=== PATIENT | female | born 1965 | race Two or more races ===

== ENCOUNTER 2023-04-03 20:24 | Inpatient (IN) | payer OTHER ==
[2023-04-03 22:20] VITALS: BMI 22.1
[2023-04-04] MEDS ORDERED: ACETAMINOPHEN 325 MG TABLET (FP) PO PRN (00:02)
[2023-04-04] MEDS ORDERED: BENZOCAINE/MENTHOL (CHLORASEPTIC ) LOZENGE MM PRN (00:02)
[2023-04-04] MEDS ORDERED: MAG HYDROX/AL HYDROX/SIMETH 30 ML UNIT-DOSE CUP PO PRN (00:02)
[2023-04-04] MEDS ORDERED: COLLOIDAL OATMEAL 1 BAR EACH TP PRN (00:02)
[2023-04-04] MEDS ORDERED: MAGNESIUM HYDROX 2400MG/30ML ORAL SUSPENSION 30 ML CUP PO PRN (00:02)
[2023-04-04] MEDS ORDERED: guaiFENesin 600 MG TABLET.ER (FP) PO PRN (00:02)
[2023-04-04] MEDS ORDERED: NALOXONE HCL (KLOXXADO) 8 MG SPRAY NS PRN (00:02)
[2023-04-04] MEDS ORDERED: LOPERAMIDE HCL 2 MG CAPSULE PO PRN (00:02)
[2023-04-04] MEDS ORDERED: POLYETHYLENE GLYCOL (HEALTHYLAX) 3350 17 GM PACKET PO PRN (00:02)
[2023-04-04] MEDS ORDERED: BENZONATATE 200 MG CAPSULE PO PRN (00:02)
[2023-04-04] MEDS ORDERED: NALOXONE HCL 0.4 MG/ML VIAL IM PRN (00:02)
[2023-04-04] MEDS ORDERED: NICOTINE POLACRILEX 2 MG GUM BUC PRN (00:02)
[2023-04-04] MEDS ORDERED: TUBERCULIN PPD 5 TU/0.1ML SYRINGE (IN PATIENT USE ONLY) ID ONE (04:03)
[2023-04-04] MEDS ORDERED: TUBERCULIN PPD 5 TU/0.1ML VIAL ID ONE ×2 (04:23→06:44)
[2023-04-04 11:53] LABS: EPI CELLS 24 /uL (0-25.1); HYALINE CASTS 1 /uL (0-3.1); PH,URINE 5.5 (5.0-8.0); URINE APPEARANCE CLEAR; URINE BACTERIA 181 /uL (0-1359); URINE BILIRUBIN NEGATIVE (NEGATIVE); URINE COLOR YELLOW; URINE GLUCOSE (UA) NEGATIVE (NEGATIVE); URINE KETONE NEGATIVE (NEGATIVE); URINE LEUK ESTERASE 2+ (NEGATIVE); URINE NITRITE NEGATIVE (NEGATIVE); URINE PROTEIN TRACE (NEGATIVE); URINE RBC 3 /uL (0-23.9); URINE WBC 51 /uL (0-25.8)
[2023-04-04] MEDS ORDERED: VALBENAZINE TOSYLATE 80 MG PO SCH (12:00)
[2023-04-04] MEDS: BICTEGRAV/EMTRICIT/TENOFOV (BIKTARVY) 50-200-25 MG TABLET PO SCH (13:17)
[2023-04-04] MEDS: PREGABALIN 50 MG CAPSULE PO SCH ×2 (13:17→21:37)
[2023-04-04] MEDS: PRENATAL VITAMINS W/ FOLIC ACID TABLET (FP) PO SCH (13:23)
[2023-04-04] MEDS: NICOTINE 14 MG/24 HOURS TOPICAL PATCH TD SCH (13:37)
[2023-04-04] MEDS: ATORVASTATIN CA 10 MG TABLET (FP) PO SCH (21:36)
[2023-04-04] MEDS: DOCUSATE SODIUM 100 MG CAPSULE (FP) PO SCH (21:36)
[2023-04-04] MEDS: QUEtiapine FUMARATE 300 MG TABLET PO SCH (21:37)
[2023-04-04] MEDS: MELATONIN 5 MG TABLETS PO SCH (21:37)
[2023-04-04] MEDS: THIAMINE HCL 100 MG TABLET (FP) PO SCH (21:38)
[2023-04-04] MEDS ORDERED: SENNOSIDES 8.6MG TABLET (FP) PO SCH (22:00)
[2023-04-05] MEDS: SENNOSIDES 8.6MG TABLET (FP) PO SCH ×2 (00:08→21:38)
[2023-04-05] MEDS: amLODIPine BESYLATE 10 MG TABLET (FP) PO SCH (06:30)
[2023-04-05] MEDS: BICTEGRAV/EMTRICIT/TENOFOV (BIKTARVY) 50-200-25 MG TABLET PO SCH (07:02)
[2023-04-05] MEDS: NICOTINE 14 MG/24 HOURS TOPICAL PATCH TD SCH (09:58)
[2023-04-05] MEDS: PREGABALIN 50 MG CAPSULE PO SCH ×2 (09:59→21:37)
[2023-04-05] MEDS: PRENATAL VITAMINS W/ FOLIC ACID TABLET (FP) PO SCH (09:59)
[2023-04-05 10:11] LABS: POTASSIUM 3.4 mmol/L (3.5-5.1)
[2023-04-05 10:17] LABS: ALBUMIN 3.1 g/dl (3.4-5.0); BLOOD UREA NITROGEN 18.1 mg/dL (7-18)
[2023-04-05 10:20] LABS: CREATININE 0.8 mg/dL (0.55-1.3)
[2023-04-05 10:22] LABS: BILIRUBIN,TOTAL 0.4 mg/dL (0.2-1); TOT PROT 6.8 g/dl (6.4-8.2)
[2023-04-05 10:36] LABS: HEMATOCRIT 34.2 % (32.4-45.2); HEMOGLOBIN 11.4 GM/dL (10.7-15.3); MCH 28.2 pg (25.7-33.7); MCHC 33.5 g/dl (32.0-36.0); MEAN CELL VOLUME 84.3 fl (80-96); PLATELET COUNT 414 10^3/uL (134-434); RBC 4.05 M/mm3 (3.60-5.2); RDW 15.9 % (11.6-15.6); WHITE BLOOD COUNT 4.4 K/mm3 (4.0-10.0)
[2023-04-05 11:35] LABS: SYPHILIS W/ RPR CONF NON-REACTIVE (NONREACTIVE)
[2023-04-05] MEDS: ATORVASTATIN CA 10 MG TABLET (FP) PO SCH (21:37)
[2023-04-05] MEDS: DOCUSATE SODIUM 100 MG CAPSULE (FP) PO SCH (21:37)
[2023-04-05] MEDS: THIAMINE HCL 100 MG TABLET (FP) PO SCH (21:38)
[2023-04-05] MEDS: MELATONIN 5 MG TABLETS PO SCH (21:38)
[2023-04-05] MEDS: QUEtiapine FUMARATE 300 MG TABLET PO SCH (21:38)
[2023-04-06] MEDS: BICTEGRAV/EMTRICIT/TENOFOV (BIKTARVY) 50-200-25 MG TABLET PO SCH (06:22)
[2023-04-06] MEDS: amLODIPine BESYLATE 10 MG TABLET (FP) PO SCH (06:22)
[2023-04-06] MEDS: PRENATAL VITAMINS W/ FOLIC ACID TABLET (FP) PO SCH (09:43)
[2023-04-06] MEDS: NICOTINE 14 MG/24 HOURS TOPICAL PATCH TD SCH (09:43)
[2023-04-06] MEDS: PREGABALIN 50 MG CAPSULE PO SCH ×2 (09:43→21:46)
[2023-04-06] MEDS: DOCUSATE SODIUM 100 MG CAPSULE (FP) PO SCH (21:46)
[2023-04-06] MEDS: MELATONIN 5 MG TABLETS PO SCH (21:46)
[2023-04-06] MEDS: QUEtiapine FUMARATE 300 MG TABLET PO SCH (21:46)
[2023-04-06] MEDS: SENNOSIDES 8.6MG TABLET (FP) PO SCH (21:46)
[2023-04-06] MEDS: THIAMINE HCL 100 MG TABLET (FP) PO SCH (21:46)
[2023-04-06] MEDS: ATORVASTATIN CA 10 MG TABLET (FP) PO SCH (21:48)
[2023-04-07] MEDS: BICTEGRAV/EMTRICIT/TENOFOV (BIKTARVY) 50-200-25 MG TABLET PO SCH (06:14)
[2023-04-07] MEDS: amLODIPine BESYLATE 10 MG TABLET (FP) PO SCH (06:14)
[2023-04-07] MEDS: PRENATAL VITAMINS W/ FOLIC ACID TABLET (FP) PO SCH (09:40)
[2023-04-07] MEDS: NICOTINE 14 MG/24 HOURS TOPICAL PATCH TD SCH (09:41)
[2023-04-07] MEDS: PREGABALIN 50 MG CAPSULE PO SCH ×2 (09:41→21:57)
[2023-04-07] MEDS: MELATONIN 5 MG TABLETS PO SCH (21:56)
[2023-04-07] MEDS: SENNOSIDES 8.6MG TABLET (FP) PO SCH (21:57)
[2023-04-07] MEDS: DOCUSATE SODIUM 100 MG CAPSULE (FP) PO SCH (21:57)
[2023-04-07] MEDS: THIAMINE HCL 100 MG TABLET (FP) PO SCH (21:57)
[2023-04-07] MEDS: QUEtiapine FUMARATE 300 MG TABLET PO SCH (21:57)
[2023-04-07] MEDS: ATORVASTATIN CA 10 MG TABLET (FP) PO SCH (21:57)
[2023-04-08] MEDS: BICTEGRAV/EMTRICIT/TENOFOV (BIKTARVY) 50-200-25 MG TABLET PO SCH (06:29)
[2023-04-08] MEDS: amLODIPine BESYLATE 10 MG TABLET (FP) PO SCH (06:29)
[2023-04-08] MEDS: NICOTINE 14 MG/24 HOURS TOPICAL PATCH TD SCH (09:50)
[2023-04-08] MEDS: PREGABALIN 50 MG CAPSULE PO SCH ×2 (09:50→22:04)
[2023-04-08] MEDS: PRENATAL VITAMINS W/ FOLIC ACID TABLET (FP) PO SCH (09:51)
[2023-04-08] MEDS: DOCUSATE SODIUM 100 MG CAPSULE (FP) PO SCH (21:41)
[2023-04-08] MEDS: MELATONIN 5 MG TABLETS PO SCH (21:41)
[2023-04-08] MEDS: ATORVASTATIN CA 10 MG TABLET (FP) PO SCH (21:41)
[2023-04-08] MEDS: SENNOSIDES 8.6MG TABLET (FP) PO SCH (21:42)
[2023-04-08] MEDS: QUEtiapine FUMARATE 300 MG TABLET PO SCH (21:42)
[2023-04-08] MEDS: THIAMINE HCL 100 MG TABLET (FP) PO SCH (21:42)
[2023-04-09] MEDS: BICTEGRAV/EMTRICIT/TENOFOV (BIKTARVY) 50-200-25 MG TABLET PO SCH (06:43)
[2023-04-09] MEDS: amLODIPine BESYLATE 10 MG TABLET (FP) PO SCH (06:43)
[2023-04-09] MEDS: PREGABALIN 50 MG CAPSULE PO SCH ×2 (09:53→21:37)
[2023-04-09] MEDS: PRENATAL VITAMINS W/ FOLIC ACID TABLET (FP) PO SCH (09:54)
[2023-04-09] MEDS: NICOTINE 14 MG/24 HOURS TOPICAL PATCH TD SCH (09:54)
[2023-04-09] MEDS: QUEtiapine FUMARATE 300 MG TABLET PO SCH (21:37)
[2023-04-09] MEDS: SENNOSIDES 8.6MG TABLET (FP) PO SCH (21:37)
[2023-04-09] MEDS: DOCUSATE SODIUM 100 MG CAPSULE (FP) PO SCH (21:37)
[2023-04-09] MEDS: THIAMINE HCL 100 MG TABLET (FP) PO SCH (21:37)
[2023-04-09] MEDS: ATORVASTATIN CA 10 MG TABLET (FP) PO SCH (21:37)
[2023-04-09] MEDS: MELATONIN 5 MG TABLETS PO SCH (21:37)
[2023-04-10] MEDS: BICTEGRAV/EMTRICIT/TENOFOV (BIKTARVY) 50-200-25 MG TABLET PO SCH (06:14)
[2023-04-10] MEDS: amLODIPine BESYLATE 10 MG TABLET (FP) PO SCH (06:14)
[2023-04-10] MEDS: NICOTINE 14 MG/24 HOURS TOPICAL PATCH TD SCH (10:03)
[2023-04-10] MEDS: PREGABALIN 50 MG CAPSULE PO SCH ×2 (10:03→21:44)
[2023-04-10] MEDS: PRENATAL VITAMINS W/ FOLIC ACID TABLET (FP) PO SCH (10:03)
[2023-04-10] MEDS: THIAMINE HCL 100 MG TABLET (FP) PO SCH (21:44)
[2023-04-10] MEDS: MELATONIN 5 MG TABLETS PO SCH (21:44)
[2023-04-10] MEDS: ATORVASTATIN CA 10 MG TABLET (FP) PO SCH (21:44)
[2023-04-10] MEDS: DOCUSATE SODIUM 100 MG CAPSULE (FP) PO SCH (21:44)
[2023-04-10] MEDS: QUEtiapine FUMARATE 300 MG TABLET PO SCH (21:44)
[2023-04-10] MEDS: SENNOSIDES 8.6MG TABLET (FP) PO SCH (21:44)
[2023-04-11] MEDS: BICTEGRAV/EMTRICIT/TENOFOV (BIKTARVY) 50-200-25 MG TABLET PO SCH (07:04)
[2023-04-11] MEDS: amLODIPine BESYLATE 10 MG TABLET (FP) PO SCH (07:04)
[2023-04-11] MEDS: PRENATAL VITAMINS W/ FOLIC ACID TABLET (FP) PO SCH (09:44)
[2023-04-11] MEDS: PREGABALIN 50 MG CAPSULE PO SCH ×2 (09:44→21:35)
[2023-04-11] MEDS: NICOTINE 14 MG/24 HOURS TOPICAL PATCH TD SCH (09:44)
[2023-04-11] MEDS: QUEtiapine FUMARATE 300 MG TABLET PO SCH (21:35)
[2023-04-11] MEDS: MELATONIN 5 MG TABLETS PO SCH (21:35)
[2023-04-11] MEDS: THIAMINE HCL 100 MG TABLET (FP) PO SCH (21:35)
[2023-04-11] MEDS: DOCUSATE SODIUM 100 MG CAPSULE (FP) PO SCH (21:35)
[2023-04-11] MEDS: ATORVASTATIN CA 10 MG TABLET (FP) PO SCH (21:35)
[2023-04-11] MEDS: SENNOSIDES 8.6MG TABLET (FP) PO SCH (21:35)
[2023-04-12] MEDS: amLODIPine BESYLATE 10 MG TABLET (FP) PO SCH (06:35)
[2023-04-12] MEDS: BICTEGRAV/EMTRICIT/TENOFOV (BIKTARVY) 50-200-25 MG TABLET PO SCH (06:35)
[2023-04-12] MEDS: PRENATAL VITAMINS W/ FOLIC ACID TABLET (FP) PO SCH (10:25)
[2023-04-12] MEDS: NICOTINE 14 MG/24 HOURS TOPICAL PATCH TD SCH (10:25)
[2023-04-12] MEDS: PREGABALIN 50 MG CAPSULE PO SCH ×2 (10:25→21:43)
[2023-04-12] MEDS: IBUPROFEN 400 MG TABLET (FP) PO PRN (10:25)
[2023-04-12] MEDS: QUEtiapine FUMARATE 300 MG TABLET PO SCH (21:42)
[2023-04-12] MEDS: THIAMINE HCL 100 MG TABLET (FP) PO SCH (21:43)
[2023-04-12] MEDS: DOCUSATE SODIUM 100 MG CAPSULE (FP) PO SCH (21:43)
[2023-04-12] MEDS: SENNOSIDES 8.6MG TABLET (FP) PO SCH (21:43)
[2023-04-12] MEDS: ATORVASTATIN CA 10 MG TABLET (FP) PO SCH (21:43)
[2023-04-12] MEDS: MELATONIN 5 MG TABLETS PO SCH (21:43)
[2023-04-12] MEDS: IBUPROFEN 600 MG TABLET (FP) PO PRN (21:44)
[2023-04-13] MEDS: BICTEGRAV/EMTRICIT/TENOFOV (BIKTARVY) 50-200-25 MG TABLET PO SCH (06:30)
[2023-04-13] MEDS: amLODIPine BESYLATE 10 MG TABLET (FP) PO SCH (07:31)
[2023-04-13] MEDS: PRENATAL VITAMINS W/ FOLIC ACID TABLET (FP) PO SCH (09:54)
[2023-04-13] MEDS: IBUPROFEN 400 MG TABLET (FP) PO PRN (09:54)
[2023-04-13] MEDS: PREGABALIN 50 MG CAPSULE PO SCH ×2 (09:54→21:30)
[2023-04-13] MEDS: NICOTINE 14 MG/24 HOURS TOPICAL PATCH TD SCH (09:56)
[2023-04-13] MEDS: ATORVASTATIN CA 10 MG TABLET (FP) PO SCH (21:30)
[2023-04-13] MEDS: SENNOSIDES 8.6MG TABLET (FP) PO SCH (21:30)
[2023-04-13] MEDS: DOCUSATE SODIUM 100 MG CAPSULE (FP) PO SCH (21:30)
[2023-04-13] MEDS: THIAMINE HCL 100 MG TABLET (FP) PO SCH (21:30)
[2023-04-13] MEDS: QUEtiapine FUMARATE 300 MG TABLET PO SCH (21:30)
[2023-04-13] MEDS: MELATONIN 5 MG TABLETS PO SCH (21:30)
[2023-04-14] MEDS: BICTEGRAV/EMTRICIT/TENOFOV (BIKTARVY) 50-200-25 MG TABLET PO SCH (06:15)
[2023-04-14] MEDS: amLODIPine BESYLATE 10 MG TABLET (FP) PO SCH (06:15)
[2023-04-14] MEDS: PRENATAL VITAMINS W/ FOLIC ACID TABLET (FP) PO SCH (09:55)
[2023-04-14] MEDS: PREGABALIN 50 MG CAPSULE PO SCH ×2 (09:55→21:59)
[2023-04-14] MEDS: NICOTINE 14 MG/24 HOURS TOPICAL PATCH TD SCH (09:56)
[2023-04-14] MEDS: IBUPROFEN 400 MG TABLET (FP) PO PRN (09:57)
[2023-04-14] MEDS: QUEtiapine FUMARATE 300 MG TABLET PO SCH (21:58)
[2023-04-14] MEDS: THIAMINE HCL 100 MG TABLET (FP) PO SCH (21:58)
[2023-04-14] MEDS: DOCUSATE SODIUM 100 MG CAPSULE (FP) PO SCH (21:59)
[2023-04-14] MEDS: IBUPROFEN 600 MG TABLET (FP) PO PRN (21:59)
[2023-04-14] MEDS: ATORVASTATIN CA 10 MG TABLET (FP) PO SCH (21:59)
[2023-04-14] MEDS: MELATONIN 5 MG TABLETS PO SCH (21:59)
[2023-04-14] MEDS: SENNOSIDES 8.6MG TABLET (FP) PO SCH (21:59)
[2023-04-15] MEDS: amLODIPine BESYLATE 10 MG TABLET (FP) PO SCH (06:32)
[2023-04-15] MEDS: BICTEGRAV/EMTRICIT/TENOFOV (BIKTARVY) 50-200-25 MG TABLET PO SCH (06:32)
[2023-04-15] MEDS: PRENATAL VITAMINS W/ FOLIC ACID TABLET (FP) PO SCH (09:53)
[2023-04-15] MEDS: PREGABALIN 50 MG CAPSULE PO SCH ×2 (09:53→21:56)
[2023-04-15] MEDS: NICOTINE 14 MG/24 HOURS TOPICAL PATCH TD SCH (09:53)
[2023-04-15] MEDS: SENNOSIDES 8.6MG TABLET (FP) PO SCH (21:55)
[2023-04-15] MEDS: DOCUSATE SODIUM 100 MG CAPSULE (FP) PO SCH (21:55)
[2023-04-15] MEDS: THIAMINE HCL 100 MG TABLET (FP) PO SCH (21:56)
[2023-04-15] MEDS: ATORVASTATIN CA 10 MG TABLET (FP) PO SCH (21:56)
[2023-04-15] MEDS: QUEtiapine FUMARATE 300 MG TABLET PO SCH (21:56)
[2023-04-15] MEDS: MELATONIN 5 MG TABLETS PO SCH (21:56)
[2023-04-15] MEDS: IBUPROFEN 600 MG TABLET (FP) PO PRN (21:57)
[2023-04-16] MEDS: amLODIPine BESYLATE 10 MG TABLET (FP) PO SCH (06:31)
[2023-04-16] MEDS: BICTEGRAV/EMTRICIT/TENOFOV (BIKTARVY) 50-200-25 MG TABLET PO SCH (06:31)
[2023-04-16] MEDS: IBUPROFEN 600 MG TABLET (FP) PO PRN (09:39)
[2023-04-16] MEDS: PREGABALIN 50 MG CAPSULE PO SCH ×2 (09:39→21:23)
[2023-04-16] MEDS: PRENATAL VITAMINS W/ FOLIC ACID TABLET (FP) PO SCH (09:39)
[2023-04-16] MEDS: NICOTINE 14 MG/24 HOURS TOPICAL PATCH TD SCH (09:40)
[2023-04-16] MEDS: LIDOCAINE 4% PATCH TP SCH (13:59)
[2023-04-16] MEDS: QUEtiapine FUMARATE 300 MG TABLET PO SCH (21:23)
[2023-04-16] MEDS: SENNOSIDES 8.6MG TABLET (FP) PO SCH (21:23)
[2023-04-16] MEDS: THIAMINE HCL 100 MG TABLET (FP) PO SCH (21:23)
[2023-04-16] MEDS: DOCUSATE SODIUM 100 MG CAPSULE (FP) PO SCH (21:23)
[2023-04-16] MEDS: ATORVASTATIN CA 10 MG TABLET (FP) PO SCH (21:23)
[2023-04-16] MEDS: MELATONIN 5 MG TABLETS PO SCH (21:23)
[2023-04-16] MEDS: LIDOCAINE PATCH REMOVAL MC SCH (22:45)
[2023-04-17] MEDS: amLODIPine BESYLATE 10 MG TABLET (FP) PO SCH (06:23)
[2023-04-17] MEDS: BICTEGRAV/EMTRICIT/TENOFOV (BIKTARVY) 50-200-25 MG TABLET PO SCH (06:23)
[2023-04-17] MEDS: PRENATAL VITAMINS W/ FOLIC ACID TABLET (FP) PO SCH (09:55)
[2023-04-17] MEDS: PREGABALIN 50 MG CAPSULE PO SCH ×2 (09:55→21:23)
[2023-04-17] MEDS: LIDOCAINE 4% PATCH TP SCH (09:55)
[2023-04-17] MEDS: IBUPROFEN 600 MG TABLET (FP) PO PRN (09:56)
[2023-04-17] MEDS: NICOTINE 14 MG/24 HOURS TOPICAL PATCH TD SCH (09:58)
[2023-04-17] MEDS: SENNOSIDES 8.6MG TABLET (FP) PO SCH (21:23)
[2023-04-17] MEDS: DOCUSATE SODIUM 100 MG CAPSULE (FP) PO SCH (21:24)
[2023-04-17] MEDS: QUEtiapine FUMARATE 300 MG TABLET PO SCH (21:24)
[2023-04-17] MEDS: ATORVASTATIN CA 10 MG TABLET (FP) PO SCH (21:24)
[2023-04-17] MEDS: MELATONIN 5 MG TABLETS PO SCH (21:24)
[2023-04-17] MEDS: THIAMINE HCL 100 MG TABLET (FP) PO SCH (21:24)
[2023-04-17] MEDS: LIDOCAINE PATCH REMOVAL MC SCH (21:31)
[2023-04-18] MEDS: BICTEGRAV/EMTRICIT/TENOFOV (BIKTARVY) 50-200-25 MG TABLET PO SCH (06:34)
[2023-04-18] MEDS: IBUPROFEN 600 MG TABLET (FP) PO PRN ×2 (06:34→10:26)
[2023-04-18] MEDS: amLODIPine BESYLATE 10 MG TABLET (FP) PO SCH (06:34)
[2023-04-18] MEDS: PRENATAL VITAMINS W/ FOLIC ACID TABLET (FP) PO SCH (10:26)
[2023-04-18] MEDS: PREGABALIN 50 MG CAPSULE PO SCH ×2 (10:26→21:25)
[2023-04-18] MEDS: LIDOCAINE 4% PATCH TP SCH (10:26)
[2023-04-18] MEDS: NICOTINE 14 MG/24 HOURS TOPICAL PATCH TD SCH (10:27)
[2023-04-18] MEDS: DOCUSATE SODIUM 100 MG CAPSULE (FP) PO SCH (21:24)
[2023-04-18] MEDS: ATORVASTATIN CA 10 MG TABLET (FP) PO SCH (21:25)
[2023-04-18] MEDS: SENNOSIDES 8.6MG TABLET (FP) PO SCH (21:25)
[2023-04-18] MEDS: QUEtiapine FUMARATE 300 MG TABLET PO SCH (21:25)
[2023-04-18] MEDS: MELATONIN 5 MG TABLETS PO SCH (21:26)
[2023-04-18] MEDS: THIAMINE HCL 100 MG TABLET (FP) PO SCH (21:26)
[2023-04-18] MEDS: LIDOCAINE PATCH REMOVAL MC SCH (22:02)
[2023-04-19] MEDS: BICTEGRAV/EMTRICIT/TENOFOV (BIKTARVY) 50-200-25 MG TABLET PO SCH (06:41)
[2023-04-19] MEDS: amLODIPine BESYLATE 10 MG TABLET (FP) PO SCH (06:42)
[2023-04-19] MEDS: LIDOCAINE 4% PATCH TP SCH (10:32)
[2023-04-19] MEDS: PRENATAL VITAMINS W/ FOLIC ACID TABLET (FP) PO SCH (10:33)
[2023-04-19] MEDS: PREGABALIN 50 MG CAPSULE PO SCH ×2 (10:33→21:27)
[2023-04-19] MEDS: NICOTINE 14 MG/24 HOURS TOPICAL PATCH TD SCH (10:33)
[2023-04-19] MEDS: IBUPROFEN 600 MG TABLET (FP) PO PRN (10:35)
[2023-04-19] MEDS: ATORVASTATIN CA 10 MG TABLET (FP) PO SCH (21:27)
[2023-04-19] MEDS: SENNOSIDES 8.6MG TABLET (FP) PO SCH (21:27)
[2023-04-19] MEDS: MELATONIN 5 MG TABLETS PO SCH (21:27)
[2023-04-19] MEDS: THIAMINE HCL 100 MG TABLET (FP) PO SCH (21:27)
[2023-04-19] MEDS: DOCUSATE SODIUM 100 MG CAPSULE (FP) PO SCH (21:27)
[2023-04-19] MEDS: QUEtiapine FUMARATE 300 MG TABLET PO SCH (21:27)
[2023-04-19] MEDS: LIDOCAINE PATCH REMOVAL MC SCH (21:28)
[2023-04-20] MEDS: amLODIPine BESYLATE 10 MG TABLET (FP) PO SCH (06:25)
[2023-04-20] MEDS: BICTEGRAV/EMTRICIT/TENOFOV (BIKTARVY) 50-200-25 MG TABLET PO SCH (06:25)
[2023-04-20] MEDS: IBUPROFEN 600 MG TABLET (FP) PO PRN ×2 (10:18→21:36)
[2023-04-20] MEDS: LIDOCAINE 4% PATCH TP SCH (10:20)
[2023-04-20] MEDS: NICOTINE 14 MG/24 HOURS TOPICAL PATCH TD SCH (10:20)
[2023-04-20] MEDS: PREGABALIN 50 MG CAPSULE PO SCH ×2 (10:20→21:34)
[2023-04-20] MEDS: PRENATAL VITAMINS W/ FOLIC ACID TABLET (FP) PO SCH (10:21)
[2023-04-20] MEDS: QUEtiapine FUMARATE 300 MG TABLET PO SCH (21:34)
[2023-04-20] MEDS: THIAMINE HCL 100 MG TABLET (FP) PO SCH (21:34)
[2023-04-20] MEDS: ATORVASTATIN CA 10 MG TABLET (FP) PO SCH (21:34)
[2023-04-20] MEDS: SENNOSIDES 8.6MG TABLET (FP) PO SCH (21:34)
[2023-04-20] MEDS: MELATONIN 5 MG TABLETS PO SCH (21:34)
[2023-04-20] MEDS: DOCUSATE SODIUM 100 MG CAPSULE (FP) PO SCH (21:34)
[2023-04-20] MEDS: LIDOCAINE PATCH REMOVAL MC SCH (23:09)
[2023-04-21] MEDS: BICTEGRAV/EMTRICIT/TENOFOV (BIKTARVY) 50-200-25 MG TABLET PO SCH (06:16)
[2023-04-21] MEDS: amLODIPine BESYLATE 10 MG TABLET (FP) PO SCH (06:16)
[2023-04-21] MEDS: IBUPROFEN 400 MG TABLET (FP) PO PRN (10:18)
[2023-04-21] MEDS: PREGABALIN 50 MG CAPSULE PO SCH ×2 (10:18→21:29)
[2023-04-21] MEDS: PRENATAL VITAMINS W/ FOLIC ACID TABLET (FP) PO SCH (10:18)
[2023-04-21] MEDS: LIDOCAINE 4% PATCH TP SCH (10:20)
[2023-04-21] MEDS: NICOTINE 14 MG/24 HOURS TOPICAL PATCH TD SCH (10:20)
[2023-04-21] MEDS: SENNOSIDES 8.6MG TABLET (FP) PO SCH (21:28)
[2023-04-21] MEDS: THIAMINE HCL 100 MG TABLET (FP) PO SCH (21:28)
[2023-04-21] MEDS: QUEtiapine FUMARATE 300 MG TABLET PO SCH (21:28)
[2023-04-21] MEDS: DOCUSATE SODIUM 100 MG CAPSULE (FP) PO SCH (21:28)
[2023-04-21] MEDS: MELATONIN 5 MG TABLETS PO SCH (21:29)
[2023-04-21] MEDS: ATORVASTATIN CA 10 MG TABLET (FP) PO SCH (21:29)
[2023-04-21] MEDS: IBUPROFEN 600 MG TABLET (FP) PO PRN (21:29)
[2023-04-21] MEDS: LIDOCAINE PATCH REMOVAL MC SCH (22:10)
[2023-04-22] MEDS: BICTEGRAV/EMTRICIT/TENOFOV (BIKTARVY) 50-200-25 MG TABLET PO SCH (06:47)
[2023-04-22] MEDS: amLODIPine BESYLATE 10 MG TABLET (FP) PO SCH (06:47)
[2023-04-22] MEDS: PRENATAL VITAMINS W/ FOLIC ACID TABLET (FP) PO SCH (09:49)
[2023-04-22] MEDS: IBUPROFEN 600 MG TABLET (FP) PO PRN ×2 (09:50→22:02)
[2023-04-22] MEDS: NICOTINE 14 MG/24 HOURS TOPICAL PATCH TD SCH (09:50)
[2023-04-22] MEDS: PREGABALIN 50 MG CAPSULE PO SCH ×2 (09:50→22:03)
[2023-04-22] MEDS: LIDOCAINE 4% PATCH TP SCH (09:51)
[2023-04-22] MEDS: THIAMINE HCL 100 MG TABLET (FP) PO SCH (22:00)
[2023-04-22] MEDS: MELATONIN 5 MG TABLETS PO SCH (22:00)
[2023-04-22] MEDS: DOCUSATE SODIUM 100 MG CAPSULE (FP) PO SCH (22:01)
[2023-04-22] MEDS: QUEtiapine FUMARATE 300 MG TABLET PO SCH (22:01)
[2023-04-22] MEDS: ATORVASTATIN CA 10 MG TABLET (FP) PO SCH (22:02)
[2023-04-22] MEDS: SENNOSIDES 8.6MG TABLET (FP) PO SCH (22:02)
[2023-04-22] MEDS: LIDOCAINE PATCH REMOVAL MC SCH (22:05)
[2023-04-23] MEDS: amLODIPine BESYLATE 10 MG TABLET (FP) PO SCH (06:31)
[2023-04-23] MEDS: BICTEGRAV/EMTRICIT/TENOFOV (BIKTARVY) 50-200-25 MG TABLET PO SCH (06:59)
[2023-04-23] MEDS: IBUPROFEN 600 MG TABLET (FP) PO PRN ×2 (10:09→21:38)
[2023-04-23] MEDS: PRENATAL VITAMINS W/ FOLIC ACID TABLET (FP) PO SCH (10:09)
[2023-04-23] MEDS: PREGABALIN 50 MG CAPSULE PO SCH ×2 (10:09→21:42)
[2023-04-23] MEDS: NICOTINE 14 MG/24 HOURS TOPICAL PATCH TD SCH (10:10)
[2023-04-23] MEDS: LIDOCAINE 4% PATCH TP SCH (10:11)
[2023-04-23] MEDS: SENNOSIDES 8.6MG TABLET (FP) PO SCH (21:38)
[2023-04-23] MEDS: THIAMINE HCL 100 MG TABLET (FP) PO SCH (21:38)
[2023-04-23] MEDS: DOCUSATE SODIUM 100 MG CAPSULE (FP) PO SCH (21:38)
[2023-04-23] MEDS: QUEtiapine FUMARATE 300 MG TABLET PO SCH (21:38)
[2023-04-23] MEDS: ATORVASTATIN CA 10 MG TABLET (FP) PO SCH (21:38)
[2023-04-23] MEDS: MELATONIN 5 MG TABLETS PO SCH (21:42)
[2023-04-23] MEDS: LIDOCAINE PATCH REMOVAL MC SCH (21:43)
[2023-04-24] MEDS: BICTEGRAV/EMTRICIT/TENOFOV (BIKTARVY) 50-200-25 MG TABLET PO SCH (06:10)
[2023-04-24] MEDS: amLODIPine BESYLATE 10 MG TABLET (FP) PO SCH (06:10)
[2023-04-24] MEDS: IBUPROFEN 600 MG TABLET (FP) PO PRN ×2 (09:56→21:27)
[2023-04-24] MEDS: NICOTINE 14 MG/24 HOURS TOPICAL PATCH TD SCH (09:56)
[2023-04-24] MEDS: PREGABALIN 50 MG CAPSULE PO SCH ×2 (09:56→21:26)
[2023-04-24] MEDS: PRENATAL VITAMINS W/ FOLIC ACID TABLET (FP) PO SCH (09:56)
[2023-04-24] MEDS: LIDOCAINE 4% PATCH TP SCH (09:58)
[2023-04-24] MEDS: DOCUSATE SODIUM 100 MG CAPSULE (FP) PO SCH (21:26)
[2023-04-24] MEDS: SENNOSIDES 8.6MG TABLET (FP) PO SCH (21:26)
[2023-04-24] MEDS: THIAMINE HCL 100 MG TABLET (FP) PO SCH (21:26)
[2023-04-24] MEDS: QUEtiapine FUMARATE 300 MG TABLET PO SCH (21:26)
[2023-04-24] MEDS: ATORVASTATIN CA 10 MG TABLET (FP) PO SCH (21:26)
[2023-04-24] MEDS: MELATONIN 5 MG TABLETS PO SCH (21:28)
[2023-04-24] MEDS: LIDOCAINE PATCH REMOVAL MC SCH (21:28)
[2023-04-25] MEDS: amLODIPine BESYLATE 10 MG TABLET (FP) PO SCH (06:24)
[2023-04-25] MEDS: BICTEGRAV/EMTRICIT/TENOFOV (BIKTARVY) 50-200-25 MG TABLET PO SCH (06:24)
[2023-04-25 07:07] VITALS: BP 114/80; PULSE 80; RESP 16; TEMP 98
[2023-04-25] MEDS: PREGABALIN 50 MG CAPSULE PO SCH (10:11)
[2023-04-25] MEDS: PRENATAL VITAMINS W/ FOLIC ACID TABLET (FP) PO SCH (10:11)
[2023-04-25] MEDS: NICOTINE 14 MG/24 HOURS TOPICAL PATCH TD SCH (10:11)
[2023-04-25] MEDS: IBUPROFEN 600 MG TABLET (FP) PO PRN (10:13)
[2023-04-25] MEDS: LIDOCAINE 4% PATCH TP SCH (10:15)
== END 2023-04-25 10:20 | disposition home or self-care (01) | DRG 772 ==
LOC: YASAS 20:24 → Y5N 04-04 03:58
PROVIDERS: ADMIT Allergy & Immunology; ATTEND Psychiatry & Neurology Pain Medicine
PROC: HZ42ZZZ Group Counseling for Substance Abuse Treatment, Cognitive-Behavioral (ICD-10-PCS; principal; 2023-04-04)
DX: F10.20 Alcohol dependence, uncomplicated (principal); F14.20 Cocaine dependence, uncomplicated; F17.210 Nicotine dependence, cigarettes, uncomplicated; F20.9 Schizophrenia, unspecified; Z21 Asymptomatic human immunodeficiency virus [HIV] infection status; I10 Essential (primary) hypertension; E78.5 Hyperlipidemia, unspecified; Z85.43 Personal history of malignant neoplasm of ovary
CPT/HCPCS: 36415; 80053; 80307; 81003; 82962; 85027; 86780; 86803; 87635; 93005; 93010